=== PATIENT | female | born 1930 ===

== ENCOUNTER 2017-02-07 20:14 | Emergency (ER) | payer MEDICARE, MEDICAID ==
[2017-02-07 20:14] VITALS: BMI 31.2
[2017-02-07 20:35] VITALS: BP 136/68; PULSE 75; RESP 16; TEMP 99; O2SAT 100
--- NOTE | 2017-02-07 21:58 | ED PDOC ---
Hyperglycemia/Hypoglycemia Time Seen by Provider: 02/07/17 20:47 Chief Complaint (Nursing): High Blood Sugar Chief Complaint (Provider): High blood sugar History Per: Patient, Family History/Exam Limitations: clinical condition Onset/Duration Of Symptoms: Days : The patient does not have any of the infectious symptoms listed except for those marked. Additional Complaint(s): Patient is an 86 y/o female with a past medical history of diabetes, hypertension, and Alzheimer's disease presenting to the emergency department for high blood sugar and generalized weakness. Since 01/23/17, her blood sugar has been around 400 mg/dL. Denies fever, vomiting, diarrhea, abdominal pain, or other complaints. PCP: Dr. Anjel Bagley Past Medical History Reviewed: Historical Data, Nursing Documentation, Vital Signs Vital Signs: Last Vital Signs Temp 99.0 F 02/07/17 20:30 Pulse 75 02/07/17 20:30 Resp 16 02/07/17 20:30 BP 136/68 02/07/17 20:30 Pulse Ox 100 02/07/17 20:30 - Medical History PMH: Alzheimer's Disease, Dementia, Diabetes, Fractures (Ribs/sternal area), HTN - Surgical History Surgical History: No Surg Hx - Family History Family History: States: Unknown Family Hx - Living Arrangements Living Arrangements: With Family (and attends a senior daycare center) - Immunization History Hx Tetanus Toxoid Vaccination: No (unknown) Hx Influenza Vaccination: No (unknown) Hx Pneumococcal Vaccination: Yes (unknown) - Home Medications Home Medications: Ambulatory Orders Medication Instructions Recorded Ciprofloxacin [Cipro] 500 mg PO BID 02/07/17 Donepezil HCl [Aricept] 10 mg PO HS 02/07/17 Glimepiride [Amaryl] 1 mg PO DAILY 02/07/17 Losartan/Hydrochlorothiazide 1 tab PO DAILY 02/07/17 [Losartan-Hctz 100-12.5 mg Tab] Memantine HCl [Memantine HCl] 1 tsp PO BID 02/07/17 - Allergies Allergies/Adverse Reactions: Allergies Allergy/AdvReac Type Severity Reaction Status Date / Time No Known Allergies Allergy Verified 02/07/17 20:30 Review of Systems ROS Statement: Except As Marked, All Systems Reviewed And Found Negative Constitutional: Positive for: Weakness (generalized). Negative for: Fever Gastrointestinal: Negative for: Vomiting, Abdominal Pain, Diarrhea Physical Exam - Reviewed Nursing Documentation Reviewed: Yes Vital Signs Reviewed: Yes - Physical Exam Appears: Positive for: Well, Non-toxic, No Acute Distress Head Exam: Positive for: ATRAUMATIC, NORMAL INSPECTION, NORMOCEPHALIC Skin: Positive for: Normal Color, Warm, Dry Eye Exam: Positive for: Normal appearance Neck: Positive for: Normal Cardiovascular/Chest: Positive for: Regular Rate, Rhythm. Negative for: Murmur Respiratory: Positive for: Normal Breath Sounds. Negative for: Accessory Muscle Use, Respiratory Distress Gastrointestinal/Abdominal: Positive for: Normal Exam, Soft. Negative for: Tenderness Extremity: Positive for: Normal ROM. Negative for: Pedal Edema Neurologic/Psych: Positive for: Alert (and pleasantly confused), Oriented (x1) - Laboratory Results Result Diagrams: 02/07/17 21:40 02/07/17 21:40 - ECG O2 Sat by Pulse Oximetry: 100 (RA) Pulse Ox Interpretation: Normal Medical Decision Making Medical Decision Making: Time: 21:18 Initial impression: High blood sugar Initial plan: Labs: CMP, CBC Urine C& Urinary Straight Catheter Urinalysis Reevaluation 23:00 Patient's blood sugar is 339 mg/dL. Scribe Attestation: Documented by Bettina Dover, acting as a scribe for Laura Morillo MD. Provider Scribe Attestation: All medical record entries made by the Scribe were at my direction and personally dictated by me. I have reviewed the chart and agree that the record accurately reflects my personal performance of the history, physical exam, medical decision making, and the department course for this patient. I have also personally directed, reviewed, and agree with the discharge instructions and disposition. Documented by Bettina Dover, acting as a scribe for Carolyn Vaughan MD. Disposition - Clinical Impression Clinical Impression: Hyperglycemia - Disposition Referrals: [facility] [Outside] Condition: IMPROVED Additional Instructions: follow up with your primary doctor in 1-2 days return to the ED with any worsening or concerning symptoms Instructions: Diabetic Hyperglycemia (ED) Forms: [employer] ([employer]) Print Language: SENEGALESE
[2017-02-07 21:59] LABS: BASO # 0.1 K/uL (0.0-0.2); BASO % 0.8 % (0.0-2.0); EOS # 0.1 K/uL (0.0-0.7); EOS % 1.4 % (0.0-4.0); LYMPH # 1.5 K/uL (1.0-4.3); LYMPH % 19.6 % (20.0-40.0); MEAN CELL VOLUME 91.7 fl (81.0-99.0); MEAN CORPUSCULAR HEMOGLOBIN 29.6 pg (27.0-31.0); MEAN CORPUSCULAR HGB CONC 32.3 g/dL (33.0-37.0); MEAN PLATELET VOLUME 10.4 fl (7.2-11.7); MONO # 0.8 K/uL (0.0-0.8); MONO % 10.9 % (0.0-10.0); NEUT # 5.1 K/uL (1.8-7.0); NEUT % 67.3 % (50.0-75.0); NRBC % 0.1 % (0.0-0.0); RED CELL DISTRIBUTION WIDTH 13.2 % (11.5-14.5); WHITE BLOOD COUNT 7.5 K/uL (4.8-10.8)
[2017-02-07 22:19] LABS: ALB/GLOB RATIO 1.1 (1.0-2.1); ALKALINE PHOSPHATASE 64 U/L (38-126); ALT/SGPT 29 U/L (9-52); AST/SGOT 16 U/L (14-36); BILIRUBIN,TOTAL 0.3 mg/dl (0.2-1.3); BLOOD UREA NITROGEN 31 mg/dl (7-17); CALCIUM 9.1 mg/dL (8.4-10.2); CARBON DIOXIDE 27 mmol/L (22-30); CHLORIDE 107 mmol/L (98-107); GFR AFRICAN-AMERICAN > 60; GLUCOSE,RANDOM 339 mg/dL (65-105); POTASSIUM 3.7 MMOL/L (3.6-5.0); SODIUM 141 mmol/l (132-148); TOTAL PROTEIN 6.7 G/DL (6.3-8.2)
[2017-02-07] MEDS ORDERED: Sodium Chloride 0.9% 1,000 ML IV STA (22:30)
[2017-02-07] MEDS ORDERED: Insulin Regular 100 units/ml SC STA (22:52)
[2017-02-07] MEDS ORDERED: Insulin Regular 100 units/ml IV STA (23:09)
[2017-02-07 23:19] LABS: RBC URINE 1 /hpf (0-3); URINE BILIRUBIN NEGATIVE (NEGATIVE); URINE BLOOD NEGATIVE (NEGATIVE); URINE COLOR YELLOW (YELLOW); URINE GLUCOSE (UA) >=500 mg/dL (Normal); URINE KETONE NEGATIVE (NEGATIVE); URINE LEUKOCYTE ESTERASE NEG Leu/uL (Negative); URINE PROTEIN NEGATIVE (NEGATIVE); URINE UROBILINOGEN 0.2-1.0 mg/dL (0.2-1.0); WBC URINE < 1 /hpf (0-5)
== END 2017-02-08 00:48 | disposition home or self-care (01) ==
LOC: H.ER 20:14
DX: E11.65 Type 2 diabetes mellitus with hyperglycemia (principal); F02.80 Dementia in other diseases classified elsewhere, unspecified severity, without behavioral disturbance, psychotic disturbance, mood disturbance, and anxiety; G30.9 Alzheimer's disease, unspecified; I10 Essential (primary) hypertension
CPT/HCPCS: 80053; 81003; 82948; 85025; 87086; 96360; 96372; 99284; J7040

== ENCOUNTER 2017-06-06 17:02 | Emergency (ER) | payer MEDICARE, MEDICAID ==
[2017-06-06 17:02] VITALS: BMI 31.2
[2017-06-06 17:26] VITALS: TEMP 98.9
[2017-06-06] MEDS ORDERED: Sodium Chloride 0.9% 1,000 ML IV STA (18:44)
--- NOTE | 2017-06-06 19:03 | ED PDOC ---
HPI: Female Pain Time Seen by Provider: 06/06/17 18:09 Chief Complaint (Nursing): Female Genitourinary Chief Complaint (Provider): Female Genitourinary History Per: Family (Daughter, patient has dementia) History/Exam Limitations: clinical condition (dementia) Onset/Duration Of Symptoms: Days (last night) Current Symptoms Are (Timing): Still Present Additional Complaint(s): 87 y/o female with a history of dementia, hypertension, and diabetes was brought in by daughter presents to the ED with blood in urine. Daughter noticed bright bloody spots in patients diaper last night and today. Patient has bloody urine and is complaining of lower abdominal pain. Patient has had a normal appetite throughout the day and normal bowel movements per daughter. Patient is unable to tell provider if she has dysuria. PMD: Kevyn Tejada Past Medical History Reviewed: Historical Data, Nursing Documentation, Vital Signs Vital Signs: Last Vital Signs Temp 98.9 F 06/06/17 17:21 Pulse 107 H 06/06/17 17:21 Resp 16 06/06/17 17:21 BP 122/71 06/06/17 17:21 Pulse Ox 100 06/06/17 17:21 - Medical History PMH: Alzheimer's Disease, Dementia, Diabetes, Fractures (Ribs/sternal area), HTN - Surgical History Surgical History: No Surg Hx - Family History Family History: States: Unknown Family Hx - Social History Current smoker - smoking cessation education provided: No Ex-Smoker (has not smoked in the last 12 months): No Alcohol: None Drugs: Denies - Immunization History Hx Tetanus Toxoid Vaccination: No (unknown) Hx Influenza Vaccination: No (unknown) Hx Pneumococcal Vaccination: Yes (unknown) - Home Medications Home Medications: Ambulatory Orders Medication Instructions Recorded Ciprofloxacin [Cipro] 500 mg PO BID 02/07/17 Donepezil HCl [Aricept] 10 mg PO HS 02/07/17 Glimepiride [Amaryl] 1 mg PO DAILY 02/07/17 Losartan/Hydrochlorothiazide 1 tab PO DAILY 02/07/17 [Losartan-Hctz 100-12.5 mg Tab] Memantine HCl [Memantine HCl] 1 tsp PO BID 02/07/17 Ibuprofen [Ibuprofen Susp (Bulk)] 400 mg PO Q6H PRN #250 ml 04/05/18 Nitrofurantoin 100 mg PO BID #280 ml 06/06/17 Phenazopyridine [Phenazopyridine 200 mg PO Q12 PRN #20 tab 06/06/17 HCl] - Allergies Allergies/Adverse Reactions: Allergies Allergy/AdvReac Type Severity Reaction Status Date / Time No Known Allergies Allergy Verified 02/07/17 20:30 Review of Systems ROS Statement: Except As Marked, All Systems Reviewed And Found Negative Review Of Systems: ROS cannot be obtained secondary to pt's inabilty to answer questions. Gastrointestinal: Negative for: Abdominal Pain (lower) Genitourinary Female: Positive for: Hematuria Physical Exam - Reviewed Nursing Documentation Reviewed: Yes Vital Signs Reviewed: Yes - Physical Exam Appears: Positive for: Non-toxic, No Acute Distress Head Exam: Positive for: ATRAUMATIC, NORMAL INSPECTION, NORMOCEPHALIC Skin: Positive for: Normal Color, Warm, Dry Eye Exam: Positive for: EOMI, Normal appearance, PERRL ENT: Positive for: Normal ENT Inspection Neck: Positive for: Normal, Painless ROM, Supple Cardiovascular/Chest: Positive for: Regular Rate, Rhythm. Negative for: Murmur Respiratory: Positive for: Normal Breath Sounds. Negative for: Respiratory Distress Gastrointestinal/Abdominal: Positive for: Normal Exam, Soft Pelvic Exam: Positive for: External Exam Normal, Other (tenderness to supra- pubic region) Back: Positive for: Normal Inspection. Negative for: L CVA Tenderness, R CVA Tenderness, Vertebral Tenderness Rectal: Positive for: Rectal Tone Is: (intact hemorrhoids no bleeding), Hemorrhoids Extremity: Positive for: Normal ROM. Negative for: Pedal Edema, Deformity Neurologic/Psych: Positive for: Alert - Laboratory Results Result Diagrams: 06/06/17 19:00 06/06/17 19:00 - ECG O2 Sat by Pulse Oximetry: 100 (RA) Pulse Ox Interpretation: Normal Medical Decision Making Medical Decision Making: Time: 17:21 Initial Impression: Hematuria Differential Diagnosis: UTI, cystitis, coagulopathy, anemia, or dehydration Initial Plan: * Blood Type and Screen * CMP * CBC * Partial Thromboplastin Time * Prothrombin Time * IV Fluids * Urine Culture * Uranalysis Initially recommended straight cath to obtain urine specimen, but family prefers to try to get patient to void in cup or bedpan. Elevated WBC. Family had multiple attempts to provide urine sample, but pt unable to but continues to void into her diaper. Family allowing straight cath to be performed. UA c/w UTI. DW family findings and plan of care. Stable for dc with followup. Scribe Attestation: Documented by Mathieu Lozano acting as a scribe for Dr. Corry Drew MD. Scribe Attestation: All medical record entries made by the Scribe were at my direction and personally dictated by me. I have reviewed the chart and agree that the record accurately reflects my personal performance of the history, physical exam, medical decision making, and the department course for this patient. I have also personally directed, reviewed, and agree with the discharge instructions and disposition. Disposition - Clinical Impression Clinical Impression: Cystitis Counseled Patient/Family Regarding: Studies Performed, Diagnosis, Need For Followup, Rx Given - Disposition Referrals: Anjel Bagley MD [Medical Doctor] - 06/07/17 Disposition: Routine/Home Disposition Time: 23:00 Condition: STABLE Prescriptions: Ibuprofen [Ibuprofen Susp (Bulk)] 400 mg PO Q6H PRN #250 ml PRN Reason: dysuria Nitrofurantoin 100 mg PO BID #280 ml Phenazopyridine [Phenazopyridine HCl] 200 mg PO Q12 PRN #20 tab PRN Reason: Dysuria Instructions: Urinary Tract Infection, Adult (DC), Acute Cystitis (DC) Forms: [employer] (L[place]uanian)
[2017-06-06 19:17] LABS: BASO # 0.1 K/uL (0.0-0.2); BASO % 0.4 % (0.0-2.0); EOS # 0.1 K/uL (0.0-0.7); EOS % 0.7 % (0.0-4.0); HEMOGLOBIN 12.2 g/dL (12.0-16.0); LYMPH # 1.4 K/uL (1.0-4.3); LYMPH % 8.6 % (20.0-40.0); MEAN CELL VOLUME 91.7 fl (81.0-99.0); MEAN CORPUSCULAR HEMOGLOBIN 29.2 pg (27.0-31.0); MEAN CORPUSCULAR HGB CONC 31.9 g/dL (33.0-37.0); MEAN PLATELET VOLUME 10.2 fl (7.2-11.7); MONO # 1.7 K/uL (0.0-0.8); MONO % 10.7 % (0.0-10.0); NEUT # 12.4 K/uL (1.8-7.0); NEUT % 79.6 % (50.0-75.0); PLATELET COUNT 211 K/uL (130-400); RBC 4.17 Mil/uL (3.80-5.20); RED CELL DISTRIBUTION WIDTH 13.7 % (11.5-14.5)
[2017-06-06 19:17] LABS: VENOUS BLOOD GAS BASE EXCESS 1.7 mmol/L (0.0-2.0); VENOUS BLOOD GAS PCO2 42 mmHg (40-60); VENOUS BLOOD GAS PO2 32 mm/Hg (30-55); VENOUS BLOOD PH 7.41 (7.32-7.43)
[2017-06-06 19:24] LABS: INR 1.2 (0.9-1.2); PROTHROMBIN TIME 13.7 Seconds (9.8-13.1)
[2017-06-06 19:26] LABS: WHITE BLOOD COUNT 15.6 K/uL (4.8-10.8)
[2017-06-06 19:35] LABS: ALBUMIN 3.6 g/dL (3.5-5.0); ALT/SGPT 27 U/L (9-52); AST/SGOT 18 U/L (14-36); BLOOD UREA NITROGEN 28 mg/dl (7-17); CALCIUM 9.2 mg/dL (8.4-10.2); GFR AFRICAN-AMERICAN > 60; GFR NON-AFRICAN AMERICAN 53
[2017-06-06 20:23] LABS: EOSINOPHIL 1 % (0-7); LYMPHOCYTE 5 % (20-50); MONOCYTE 8 % (0-10); NEUTROPHIL 80 % (42-75); REACTIVE LYMPHOCYTES 6 % (0-0); TOTAL CELLS COUNTED 100
[2017-06-06 20:24] LABS: HYPERSEGMENTATION PRESENT; HYPOCHROMIC SLIGHT; PLATELET ESTIMATE NORMAL (NORMAL)
[2017-06-06 20:25] LABS: LARGE PLATELETS PRESENT; TOXIC GRANULATION PRESENT
[2017-06-06 22:34] VITALS: BP 136/70; PULSE 101; RESP 18
[2017-06-06 23:05] LABS: URINE BACTERIA FEW (<OCC); URINE BILIRUBIN NEGATIVE (NEGATIVE); URINE BLOOD LARGE (NEGATIVE); URINE CLARITY TURBID (Clear); URINE COLOR YELLOW (YELLOW); URINE GLUCOSE (UA) NEG (Normal); URINE LEUKOCYTE ESTERASE LARGE Leu/uL (Negative); URINE PROTEIN 100 mg/dL (NEGATIVE); URINE UROBILINOGEN 0.2-1.0 mg/dL (0.2-1.0); WBC CLUMPS MANY /hpf
[2017-06-06 23:23] VITALS: O2SAT 100
== END 2017-06-06 23:40 | disposition home or self-care (01) ==
LOC: H.ER 17:02
DX: N30.91 Cystitis, unspecified with hematuria (principal); E11.9 Type 2 diabetes mellitus without complications; F02.80 Dementia in other diseases classified elsewhere, unspecified severity, without behavioral disturbance, psychotic disturbance, mood disturbance, and anxiety; G30.9 Alzheimer's disease, unspecified; I10 Essential (primary) hypertension; Z79.84 Long term (current) use of oral hypoglycemic drugs
CPT/HCPCS: 80053; 81003; 82803; 82948; 85025; 85610; 85730; 86850; 86900; 87086; 87181; 96360; 99284; J7040